=== PATIENT | female | born 1960 | race Caucasian/White ===

== ENCOUNTER → 2018-06-16 | Outpatient (CLI) | payer OTHER ==
[~2018-06-16] MED LIST: DOBUTamine DRIP for NUC MED 500 MG in DEXTROSE/WATER 1 250ML.BAG IV ONE
--- NOTE | 2018-06-16 11:10 | ECHOS ---
STRESS ECHOCARDIOGRAM INDICATION: Abnormal EKG. MEDICATIONS: Pravastatin, fluoxetine, Synthroid. RESTING HEART RATE: 64. BLOOD PRESSURE AT REST: 136/87. MAXIMUM HEART RATE: 140. MAXIMUM BLOOD PRESSURE: 165/87. STAGE OF ACTIVITY: 3. TIME OF ACTIVITY: 7:15. TYPE OF EXAM: Dobutamine Stress Echo CLINICAL INFORMATION: Baseline EKG shows sinus rhythm, normal axis, normal intervals. Patient was given 2g dobutamine over a period of 7 minutes as per protocol, achieving 86% of predicted maximal heart rate without chest pain or diagnostic ST-segment depression. Baseline echo shows normal left ventricular size, wall motion and systolic function. Post dobutamine infusion, there is normal hyperdynamic response of all segments of myocardium noted. There is small pericardial effusion noted on the resting images, consider doing a regular 2D echo. CONCLUSION: 1. Negative stress test by EKG criteria. 2. Negative dobutamine echo. 3. Pericardial effusion noted. MMODL / IJN: [id number] /
== END ==
LOC: RADNMMAIN 08:49
PROVIDERS: ATTEND Family Medicine
DX: I31.3 Pericardial effusion (noninflammatory) (principal)
CPT/HCPCS: 93351; J1250

== ENCOUNTER → 2023-05-25 | Day surgery (SDC) | payer OTHER ==
--- NOTE | 2023-05-25 14:29 | USB ---
Risk Values: Althea 5 year model risk: 1.4%. NCI Lifetime model risk: 6.2%. Findings: Initial scanning at the 10:00 position right breast 8 cm from the nipple at the intended biopsy site. The oval, circumscribed, 6 mm lesion here now has an anechoic appearance suggestive of a benign cyst. Likely mammographic correlate. Six-month follow-up mammogram can be performed. Biopsy is being deferred at this time. Findings and impression are discussed with the patient. Management: Diagnostic Mammogram of the right breast in 6 months. Electronically signed and approved by: Sharon Rain M.D. Radiologist
== END ==
LOC: RADUSWWP 10:05
PROVIDERS: ATTEND Family Medicine
DX: Z53.8 Procedure and treatment not carried out for other reasons (principal); R92.8 Other abnormal and inconclusive findings on diagnostic imaging of breast

== ENCOUNTER → 2023-11-24 | Outpatient (CLI) | payer OTHER ==
--- NOTE | 2023-11-24 10:55 | MM ---
Reason for Exam: Follow-up at short interval from prior study. Last mammogram was performed 9 year(s) and 2 month(s) ago. Patient History: Menarche at age 13. First Full-Term at age 21. Postmenopausal. 05/25/2023, US discontinued breast bx RT on the right side. Paternal aunt had breast cancer. Sister had breast cancer, age 60. Risk Values: Althea 5 year model risk: 2.9%. NCI Lifetime model risk: 12.8%. Prior Study Comparison: 11/17/2009 Screening Mammogram, [facility]. 05/17/2012 Screening Mammogram, [facility]. 09/18/2014 Bilateral Screening Mammogram, [facility]. Tissue Density: Right: There are scattered areas of fibroglandular density. Findings: Analyzed By CAD. The pattern is stable. No persistent suspicious asymmetric density evident No suspicious groups of microcalcifications, spiculated or lobular masses, architectural distortion or other secondary signs of malignancy are mammographically apparent. Overall Assessment: Benign, BI-RAD 2 Management: Screening Mammogram of both breasts in 6 months. A negative mammogram report should not preclude additional follow up of suspicious palpable abnormalities. Patient should continue monthly self breast exam. A clinical breast exam by your physician is recommended on an annual basis and results should be correlated with mammographic findings. Note on Althea scores and lifetime risk: 1. A Althea score greater than 3% is considered moderate risk. If this is the case, consider specialist referral to assess eligibility for a risk reducing agent. 2. If overall lifetime risk for the development of breast cancer is 20% or higher, the patient may qualify for future screening with alternating mammogram and breast MRI. Electronically signed and approved by: Gregory Wiseman D.O. Radiologis
== END | disposition home or self-care (01) ==
LOC: RADMAMWWP 10:28
PROVIDERS: ATTEND Family Medicine
DX: R92.8 Other abnormal and inconclusive findings on diagnostic imaging of breast (principal); R92.321 Mammographic fibroglandular density, right breast; Z78.0 Asymptomatic menopausal state; Z80.3 Family history of malignant neoplasm of breast
CPT/HCPCS: 77061; 77065

== ENCOUNTER → 2024-09-04 | Outpatient (CLI) | payer OTHER ==
--- NOTE | 2024-09-04 11:53 | MM ---
Reason for Exam: Screening (asymptomatic). Last mammogram was performed 9 year(s) and 11 month(s) ago. Patient History: Menarche at age 13. First Full-Term at age 21. Postmenopausal. 05/25/2023, US discontinued breast bx RT on the right side. Paternal aunt had breast cancer, age 63. Sister had breast cancer, age 60. Risk Values: Althea 5 year model risk: 3.0%. NCI Lifetime model risk: 12.4%. Tissue Density: The breasts are heterogeneously dense, which may obscure small masses. Findings: There are tiny benign-appearing round calcifications redemonstrated throughout the right breast. There is no suspicious group of microcalcifications or new suspicious mass in either breast. Overall Assessment: Benign, BI-RAD 2 Management: Screening Mammogram of both breasts in 1 year. . Patient should continue monthly self-breast exams. A clinical breast exam by your physician is recommended on an annual basis. This exam should not preclude additional follow-up of suspicious palpable abnormalities. Note on Althea scores and lifetime risk: 1. A Althea score greater than 3% is considered moderate risk. If this is the case, consider specialist referral to assess eligibility for a risk reducing agent. 2. If overall lifetime risk for the development of breast cancer is 20% or higher, the patient may qualify for future screening with alternating mammogram and breast MRI. [facility], , 09/04/2024 11:50 AM. Electronically signed and approved by: Omar Duval M.D.
== END | disposition home or self-care (01) ==
LOC: RADMAMWWP 10:47
PROVIDERS: ATTEND Family Medicine
DX: Z12.31 Encounter for screening mammogram for malignant neoplasm of breast (principal); R92.333 Mammographic heterogeneous density, bilateral breasts; R92.1 Mammographic calcification found on diagnostic imaging of breast; Z78.0 Asymptomatic menopausal state; Z80.3 Family history of malignant neoplasm of breast
CPT/HCPCS: 77063; 77067

== ENCOUNTER 2024-09-12 11:17 | Day surgery (SDC) | payer OTHER ==
[2024-09-11 13:38] VITALS: BMI 34.7
[2024-09-12] MEDS: IV FLUID CONTINUATION 1,000 ML IV ONE (11:50)
[2024-09-12 11:53] VITALS: TEMP 97.1
[2024-09-12] MEDS: LACTATED RINGERS 1,000 ML IV SCH (12:03)
[2024-09-12 12:05] LABS: Glucose,Whole Blood 96 mg/dL (70-110)
[2024-09-12] MEDS ORDERED: PROPOFOL 10 MG/ML 20 ML VIAL IV ONE (12:55)
--- NOTE | 2024-09-12 13:11 | P.PCN ---
Date of Procedure: 09/12/24 Procedure(s) Performed: BRIEF HISTORY: Patient is a 64-year-old pleasant white female scheduled for an elective colonoscopy as a part of screening for colorectal neoplasia. PROCEDURE PERFORMED: Colonoscopy. PREOPERATIVE DIAGNOSIS: Screening for colon cancer. IV sedation per Anesthesia. PROCEDURE: After informed consent was obtained, the patient, was brought into the endoscopy unit. IV sedation was administered by Anesthesia under continuous monitoring. Digital rectal examination was normal. Initially the Olympus CF-160 flexible video colonoscope was then inserted in the rectum, gradually advanced into the cecum without any difficulty. Careful examination was performed as the scope was gradually being withdrawn. Ileocecal valve and the appendiceal orifice were visualized and appeared normal. Prep was excellent. Mucosa of the cecum, ascending colon, transverse colon, descending colon, sigmoid colon, and rectum appeared normal. Scattered sigmoid diverticulosis. Retroflexion was performed in the rectum and no lesions were seen. The patient tolerated the procedure well. IMPRESSION: Normal-appearing colon from rectum to cecum with no evidence of colorectal neoplasia. RECOMMENDATIONS: Findings of this examination were discussed with the patient as well as her family.. She was advised to have repeat screening colonoscopy in 10 years
[2024-09-12 13:42] VITALS: RESP 18
[2024-09-12 14:17] VITALS: BP 150/74; PULSE 84
== END 2024-09-12 14:12 | disposition home or self-care (01) ==
LOC: ORWHC2ENDO 11:17
PROVIDERS: ATTEND Internal Medicine Gastroenterology
DX: Z12.11 Encounter for screening for malignant neoplasm of colon (principal); I10 Essential (primary) hypertension; E78.5 Hyperlipidemia, unspecified; E07.9 Disorder of thyroid, unspecified; Z79.890 Hormone replacement therapy; Z79.899 Other long term (current) drug therapy
CPT/HCPCS: 45378; J2704